=== PATIENT | female | born 1945 | race Caucasian/White ===

== ENCOUNTER 2020-11-05 18:34 | Emergency (ER) | payer OTHER, MEDICAID ==
[~2020-11-05] VITALS: Ht 172.7 cm; Wt 138.3 kg
[2020-11-05 18:35] VITALS: BP_SYST 120
[2020-11-05] MEDS ORDERED: SODIUM BICARBONATE 8.4% JECT 50 MEQ/50 ML SYRINGE IVP ONE (18:35)
[2020-11-05] MEDS ORDERED: EPINEPHrine JECT 0.1 MG/ML SYR IVP ONE (18:35)
== END 2020-11-05 21:42 ==
LOC: SED 18:34
DX: I46.9 Cardiac arrest, cause unspecified (principal); I10 Essential (primary) hypertension; E11.9 Type 2 diabetes mellitus without complications; J44.9 Chronic obstructive pulmonary disease, unspecified
CPT/HCPCS: 31500; 92950; 99285; J0171